=== PATIENT | male | born 2000 | race Hispanic/Latino ===

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

== ENCOUNTER 2020-01-01 11:50 | Emergency (ER) | payer SELFPAY ==
--- NOTE | 2020-01-01 13:21 | ER ---
Nurse's Notes [facility] Name: Eamon Sprague Age: 19 yrs Sex: Male : 2000 Arrival Date: 01/01/2020 Time: 11:53 Bed 7 Private MD: Diagnosis: Acute upper respiratory infection, unspecified Presentation: 12/31 12:04 Chief complaint: Patient states: QUISPE, sore throat, cough, fatigue, and body aches for 3 ll1 days. Fever 100.5 at home. Coronavirus screen: Client denies travel out of the [place] in the last 14 days. cough unrelated to allergies, fatigue, fever, headache, sore throat, Client presents with at least one sign or symptom that may indicate coronavirus-19. Standard/surgical mask placed on the client. Ebola Screen: Patient denies travel to an Ebola-affected area in the 21 days before illness onset. Initial Sepsis Screen: Does the patient meet any 2 criteria? No. Patient's initial sepsis screen is negative. Does the patient have a suspected source of infection? Yes: Productive cough/pneumonia. Risk Assessment: Do you want to hurt yourself or someone else? Patient reports no desire to harm self or others. Onset of symptoms was December 30, 2019. 12:04 Method Of Arrival: Ambulatory ll1 12:04 Acuity: SEEMA 3 ll1 Historical: - Allergies: 12:04 Bees; ll1 - Home Meds: 12:15 None [Active]; jl7 - PMHx: 12:15 None; jl7 - PSHx: 12:04 None; ll1 - Immunization history:: Flu vaccine is not up to date. - Social history:: Smoking status: Patient reports the use of cigarette tobacco products, denies chronic smoking, but will smoke occasionally. - Family history:: not pertinent. - Hospitalizations: : No recent hospitalization is reported. Screenin:37 Abuse screen: Denies threats or abuse. Denies injuries from another. Nutritional jl7 screening: No deficits noted. Tuberculosis screening: No symptoms or risk factors identified. Fall Risk None identified. Assessment: 12:37 General: Appears in no apparent distress. uncomfortable, Behavior is calm, cooperative, jl7 appropriate for age. Pain: Complains of pain in minor QUISPE. Neuro: Level of Consciousness is awake, alert, obeys commands, Oriented to person, place, time, situation. Cardiovascular: Patient's skin is warm and dry. Respiratory: Airway is patent Respiratory effort is even, unlabored, Respiratory pattern is regular, symmetrical. GI: No signs and/or symptoms were reported involving the gastrointestinal system. : No signs and/or symptoms were reported regarding the genitourinary system. EENT: Throat is clear. Derm: Skin is pink, warm \T\ dry. Musculoskeletal: No signs and/or symptoms reported regarding the musculoskeletal system. Vital Signs: 12:04 BP 137 / 67; Pulse 60; Resp 17; Temp 98.9; Pulse Ox 98% on R/A; Weight 86.18 kg; Height ll1 5 ft. 7 in. (170.18 cm); 12:40 BP 119 / 72; Pulse 56; Resp 15; Pulse Ox 98% ; jl7 12:04 Body Mass Index 29.76 (86.18 kg, 170.18 cm) ll1 ED Course: 11:53 Patient arrived in ED. mr 12:00 Chano Osullivan MD is Attending Physician. rn 12:04 Arm band placed on Patient placed in an exam room, on a stretcher. ll1 12:06 Triage completed. ll1 12:14 Andrew Michel, NICOLAS is Primary Nurse. jl7 12:37 Patient has correct armband on for positive identification. Bed in low position. Call jl7 light in reach. Side rails up X 1. Pulse ox on. NIBP on. 12:37 Flu and/or RSV swab sent to lab. Strep swab sent to lab. COVID-19 swab sent to lab. jl7 13:37 No provider procedures requiring assistance completed. Patient did not have IV access jl7 during this emergency room visit. Administered Medications: No medications were administered Outcome: 13:20 Discharge ordered by . rn 13:37 Discharged to home ambulatory. jl7 13:37 Condition: stable 13:37 Discharge instructions given to patient, Instructed on discharge instructions, follow up and referral plans. Demonstrated understanding of instructions, follow-up care. 13:37 Patient left the ED. jl7 Addendum: 01/03/2020 08:57 Addendum: COVID-19 Result: Positive result giiven to ED physician to notify pt. s v Physician attempted to contact pt. 01/04/2020 12:47 Addendum: Other pt called for results. Results given to pt by Dr Barbosa. i w Signatures: Pam Vinson, RN RN satinder Almaguer, Kassy mr Anthony, Jeimy, RN Chano Raymundo MD MD rn Leal, Jahala, NICOLAS RN jl7 Renetta Cox RN RN ll1
--- NOTE | 2020-01-01 13:21 | EDPHYS ---
Physician Documentation [facility] Name: Eamon Sprague Age: 19 yrs Sex: Male : 2000 Arrival Date: 01/01/2020 Time: 11:53 Bed 7 Private MD: ED Physician Chano Osullivan HPI: 12/31 12:13 This 19 yrs old Male presents to ER via Ambulatory with complaints of rn Headache, Sore Throat, Cough. 12:13 The patient or guardian reports sore throat, congestion. Onset: The symptoms/episode rn began/occurred 3 day(s) ago. Severity of symptoms: At their worst the symptoms were mild, in the emergency department the symptoms are unchanged. Modifying factors: The symptoms are alleviated by nothing, the symptoms are aggravated by nothing. Associated signs and symptoms: Pertinent positives: fever, rhinorrhea, sore throat. The patient has not experienced similar symptoms in the past. The patient has not recently seen a physician. Reports work told him to get checked, has headache/sore throat/runny nose, for 3 days, told to come and rule out COVID. NO COVID exposure. NO sob/cough.. Historical: - Allergies: 12:04 Bees; ll1 - Home Meds: 12:15 None [Active]; jl7 - PMHx: 12:15 None; jl7 - PSHx: 12:04 None; ll1 - Immunization history:: Flu vaccine is not up to date. - Social history:: Smoking status: Patient reports the use of cigarette tobacco products, denies chronic smoking, but will smoke occasionally. - Family history:: not pertinent. - Hospitalizations: : No recent hospitalization is reported. ROS: 12:13 Constitutional: + headache and fever/chills Eyes: Negative for injury, pain, redness, rn and discharge, ENT: + sore throat and nasal congestion Neck: Negative for injury, pain, and swelling, Cardiovascular: Negative for chest pain, palpitations, and edema, Respiratory: Negative for shortness of breath, cough, wheezing, and pleuritic chest pain, Abdomen/GI: Negative for abdominal pain, nausea, vomiting, diarrhea, and constipation, MS/Extremity: Negative for injury and deformity, Skin: Negative for injury, rash, and discoloration, Neuro: Negative for weakness, numbness, tingling, and seizure. Exam: 12:13 Constitutional: This is a well developed, well nourished patient who is awake, alert, rn and in no acute distress. Head/Face: Normocephalic, atraumatic. Eyes: Pupils equal round and reactive to light, extra-ocular motions intact. Lids and lashes normal. Conjunctiva and sclera are non-icteric and not injected. Cornea within normal limits. Periorbital areas with no swelling, redness, or edema. ENT: NO stridor Neck: Trachea midline, no thyromegaly or masses palpated, and no cervical lymphadenopathy. Supple, full range of motion without nuchal rigidity, or vertebral point tenderness. No Meningismus. Cardiovascular: Regular rate and rhythm. No pulse deficits. Respiratory: Speaking full sentences. No increased work of breathing, no retractions or nasal flaring. Abdomen/GI: Soft, non-tender Skin: Warm, dry MS/ Extremity: Pulses equal, no cyanosis. Neuro: Awake and alert, GCS 15 Vital Signs: 12:04 BP 137 / 67; Pulse 60; Resp 17; Temp 98.9; Pulse Ox 98% on R/A; Weight 86.18 kg; Height ll1 5 ft. 7 in. (170.18 cm); 12:40 BP 119 / 72; Pulse 56; Resp 15; Pulse Ox 98% ; jl7 12:04 Body Mass Index 29.76 (86.18 kg, 170.18 cm) ll1 MDM: 12:00 Patient medically screened. rn 13:19 Differential Diagnosis: Bronchitis Influenza Upper Respiratory Infection Viral Syndrome rn Pneumonia Other COVID-19. Data reviewed: vital signs, nurses notes, lab test result(s), and as a result, I will discharge patient. Counseling: I had a detailed discussion with the patient and/or guardian regarding: the historical points, exam findings, and any diagnostic results supporting the discharge/admit diagnosis, lab results, the need for outpatient follow up, to return to the emergency department if symptoms worsen or persist or if there are any questions or concerns that arise at home. Special discussion: I discussed with the patient/guardian in detail that at this point there is no indication for admission to the hospital. It is understood, however, that if the symptoms persist or worsen the patient needs to return immediately for re-evaluation. 12/31 12:11 Order name: Strep rn 12/31 12:11 Order name: Flu rn 12/31 12:11 Order name: COVID-19 rn 12/31 12:11 Order name: Group A Streptococcus Rapid Sc; Complete Time: 13:19 EDOH 12/31 12:11 Order name: Influenza Screen (A ; Complete Time: 13:19 EDMS 12/31 12:11 Order name: CORONAVIRUS EDOH 12/31 13:20 Order name: Throat Culture EDOH Administered Medications: No medications were administered Disposition: 01/01/20 13:20 Discharged to Home. Impression: Acute upper respiratory infection, unspecified. - Condition is Stable. - Discharge Instructions: Upper Respiratory Infection, Adult, Viral Respiratory Infection. - Medication Reconciliation Form, Thank You Letter, Antibiotic Education, Prescription Opioid Use, Work release form form. - Follow up: Private Physician; When: As needed; Reason: Recheck today's complaints, Re-evaluation by your physician. - Problem is new. - Symptoms have improved. Addendum: 01/03/2020 08:55 Addendum: Called for COVID test result, no answer. r n 12:45 Addendum: Called back, patient notified of + COVID test result, doing ok, directed to r n call tomorrow for medical records for paperwork for work.. Signatures: Dispatcher [employer] [facility] Chano Osullivan MD MD rn Leal, Jahala RN RN jl7 Renetta Cox RN RN ll1 Corrections: (The following items were deleted from the chart) 12/31 13:37 13:20 01/01/2020 13:20 Discharged to Home. Impression: Acute upper respiratory jl7 infection, unspecified. Condition is Stable. Forms are Medication Reconciliation Form, Thank You Letter, Antibiotic Education, Prescription Opioid Use. Follow up: Private Physician; When: As needed; Reason: Recheck today's complaints, Re-evaluation by your physician. Problem is new. Symptoms have improved. rn
[2020-01-02 01:15] VITALS: TEMP 98.9; O2SAT 98
[2020-01-02 01:16] VITALS: BP 119/72
== END 2020-01-01 13:37 | disposition home or self-care (01) ==
LOC: ER 11:50
DX: U07.1 COVID-19 (principal); J06.9 Acute upper respiratory infection, unspecified; F17.210 Nicotine dependence, cigarettes, uncomplicated; Z91.030 Bee allergy status
CPT/HCPCS: 87070; 87081; 87804; 99283; U0002